=== PATIENT | female | born 1965 | race Two or more races ===

== ENCOUNTER 2024-02-07 08:37 | Day surgery (SDC) | payer MEDICARE, MEDICAID ==
[~2024-02-07] VITALS: Ht 170.2 cm; Wt 103.0 kg
[~2024-02-07 08:37] MED LIST: ASPI1TAB20 PO; ATOR20TA50 PO; BIOT10004 PO; CHOL20007 PO; CYCL0.058 OP; DICL1GEL73 TD; DULO30CA PO; DULO60CA41 PO; FENO145T27 PO; FLEC1TAB PO; FURO1TAB33 PO; HYDR-4798 PO; HYDR200T36 PO; HYDRX10T PO; INSU1INJ30 SC; INSUINJ18 SC; LEVO175T2 PO; LIDO1KIT EX; MAGN500T17 PO; MECL-90 PO; METO-158 PO; MULT-732 PO; PANT40T PO; POTA-228 PO; TIRZ10IN SC; TRIA0.1P2 TOP
[2024-02-07] MEDS ORDERED: ANGIOMAX 250 MG VIAL IV ONE (09:35)
[2024-02-07] MEDS ORDERED: HEPARIN SODIUM (PORCINE) 5000 UNITS/ML 1ML VIAL ONE (09:36)
[2024-02-07] MEDS ORDERED: SODIUM CHL 0.9% 0 ML ONE (09:36)
[2024-02-07] MEDS ORDERED: VERAPAMIL 2.5MG/ML INJ 2ML VIAL IV ONE (09:36)
[2024-02-07] MEDS ORDERED: fentaNYL CITRATE 100 MCG/2 ML VL ONE (09:36)
[2024-02-07] MEDS ORDERED: MIDAZOLAM HCL 2MG/2ML 2ml VIAL (1mg/ml) ONE (09:36)
[2024-02-07] MEDS ORDERED: IODIXANOL 320MG/ML 100ML BTL IV ONE ×2 (09:45→10:43)
[2024-02-07] MEDS ORDERED: LIDOCAINE 2%HCL (LOCAL ANESTH.) INJ 20ML MDV ONE (09:46)
== END 2024-02-07 13:10 | disposition home or self-care (01) ==
LOC: CATH 08:37
PROVIDERS: ATTEND Internal Medicine
DX: R94.39 Abnormal result of other cardiovascular function study (principal); I25.10 Atherosclerotic heart disease of native coronary artery without angina pectoris; I48.91 Unspecified atrial fibrillation; E11.9 Type 2 diabetes mellitus without complications; Q87.19 Other congenital malformation syndromes predominantly associated with short stature; Z79.899 Other long term (current) drug therapy; Z95.0 Presence of cardiac pacemaker
CPT/HCPCS: 93458; C1894; J1644; J2250; J3010; J7030; Q9967; 99152